=== PATIENT | male | born 1985 | race African-American/Black ===

== ENCOUNTER 2023-08-11 06:21 | Day surgery (SDC) | payer OTHER ==
[2023-08-09 13:25] VITALS: BMI 31.8
[2023-08-11 06:56] VITALS: RESP 16
[2023-08-11] MEDS ORDERED: LIDOCAINE HCL/PF 2% SDV 5ML VIAL ONE (07:06)
[2023-08-11] MEDS ORDERED: MIDAZOLAM HCL 2 MG/2 ML SINGLE DOSE VIAL ONE (07:07)
[2023-08-11] MEDS ORDERED: PROPOFOL 20 ML ONE ×2 (07:07→08:06)
[2023-08-11] MEDS ORDERED: BUPIVACAINE HCL/PF 0.5% (5MG/ML) 10 ML VIAL ONE (07:12)
[2023-08-11] MEDS ORDERED: MORPHINE SULFATE 10 MG/1 ML *VIAL ONE (07:14)
[2023-08-11] MEDS ORDERED: DEXAMETHASONE SOD PHOSPHATE 4 MG/1 ML VIAL ONE (08:07)
[2023-08-11] MEDS ORDERED: ceFAZolin SODIUM 1 GM VIAL ONE (08:07)
[2023-08-11] MEDS ORDERED: ONDANSETRON 4 MG/2 ML VIAL ONE (09:02)
[2023-08-11] MEDS ORDERED: KETOROLAC TROMETHAMINE 30 MG/1 ML VIAL ONE (09:02)
[2023-08-11] MEDS ORDERED: oxyCODONE HCL 5 MG TABLET PO PRN ×2 (09:22)
[2023-08-11] MEDS ORDERED: ONDANSETRON 4 MG/2 ML VIAL IVPUSH PRN (09:22)
[2023-08-11] MEDS ORDERED: PROMETHAZINE HCL 25 MG/1 ML VIAL IVPB PRN (09:22)
[2023-08-11] MEDS ORDERED: ACETAMINOPHEN 1000 MG/100 ML BAG IVPB ONE (09:23)
[2023-08-11] MEDS ORDERED: LACTATED RINGERS SOLUTION 1,000 ML IV SCH (09:30)
[2023-08-11 10:40] VITALS: TEMP 96.9
[2023-08-11 11:12] VITALS: BP 127/82; PULSE 64
== END 2023-08-11 10:55 | disposition home or self-care (01) ==
LOC: FASU 06:21
PROVIDERS: ATTEND Orthopaedic Surgery
PROC: 0SBD4ZZ Excision of Left Knee Joint, Percutaneous Endoscopic Approach (ICD-10-PCS; 2023-08-11)
PROC: 0SND4ZZ Release Left Knee Joint, Percutaneous Endoscopic Approach (ICD-10-PCS; 2023-08-11)
PROC: 0SBD4ZZ Excision of Left Knee Joint, Percutaneous Endoscopic Approach (ICD-10-PCS; principal; 2023-08-11 08:39)
DX: S83.242A Other tear of medial meniscus, current injury, left knee, initial encounter (principal); S83.282A Other tear of lateral meniscus, current injury, left knee, initial encounter; M25.662 Stiffness of left knee, not elsewhere classified; M94.262 Chondromalacia, left knee; M25.862 Other specified joint disorders, left knee; M67.262 Synovial hypertrophy, not elsewhere classified, left lower leg; X58.XXXA Exposure to other specified factors, initial encounter; Y93.9 Activity, unspecified; Y92.9 Unspecified place or not applicable
CPT/HCPCS: 94760

== ENCOUNTER 2023-11-28 13:38 | Emergency (ER) | payer BC, OTHER ==
[2023-11-28] MEDS ORDERED: KETOROLAC TROMETHAMINE 30 MG/1 ML VIAL IM ONE (13:45)
[2023-11-28 14:03] VITALS: BP 131/87; PULSE 71; RESP 18; TEMP 99.1; BMI 32.5
== END 2023-11-28 15:42 | disposition home or self-care (01) ==
LOC: FER 13:38
DX: M25.561 Pain in right knee (principal); M25.562 Pain in left knee; S89.91XA Unspecified injury of right lower leg, initial encounter; R22.41 Localized swelling, mass and lump, right lower limb; W01.0XXA Fall on same level from slipping, tripping and stumbling without subsequent striking against object, initial encounter
CPT/HCPCS: 73560-TC-RT-FY; 73562-TC-LT-FY; 99284-25

== ENCOUNTER 2024-05-17 07:41 | Day surgery (SDC) | payer BC, OTHER ==
[2024-05-15 10:52] VITALS: BMI 31.8
[2024-05-17] MEDS ORDERED: LIDOCAINE HCL/PF 2% SDV 5ML VIAL ONE (08:10)
[2024-05-17] MEDS ORDERED: PROPOFOL 20 ML ONE ×2 (08:10→09:40)
[2024-05-17] MEDS ORDERED: MIDAZOLAM HCL 2 MG/2 ML SINGLE DOSE VIAL ONE (08:11)
[2024-05-17] MEDS ORDERED: MORPHINE SULFATE 10 MG/1 ML *VIAL ONE (09:16)
[2024-05-17] MEDS ORDERED: BUPIVACAINE HCL/PF 0.5% (5MG/ML) 10 ML VIAL ONE (09:16)
[2024-05-17] MEDS ORDERED: ONDANSETRON 4 MG/2 ML VIAL ONE (09:43)
[2024-05-17] MEDS ORDERED: ceFAZolin SODIUM 1 GM VIAL ONE (09:43)
[2024-05-17] MEDS ORDERED: DEXAMETHASONE SOD PHOSPHATE 4 MG/1 ML VIAL ONE (09:43)
[2024-05-17] MEDS ORDERED: KETOROLAC TROMETHAMINE 30 MG/1 ML VIAL ONE (09:43)
[2024-05-17] MEDS: BUPIVACAINE HCL/PF 0.5% (5MG/ML) 10 ML VIAL IJ ONE (10:00)
[2024-05-17] MEDS ORDERED: ONDANSETRON 4 MG/2 ML VIAL IVPUSH PRN (10:45)
[2024-05-17] MEDS ORDERED: LACTATED RINGERS SOLUTION 1,000 ML IV SCH (10:45)
[2024-05-17] MEDS ORDERED: PROMETHAZINE HCL 25 MG/1 ML VIAL IVPB PRN (10:45)
[2024-05-17] MEDS ORDERED: oxyCODONE HCL 5 MG TABLET PO PRN (10:45)
[2024-05-17] MEDS: ACETAMINOPHEN 1000 MG/100 ML BAG IVPB ONE (10:50)
[2024-05-17] MEDS ORDERED: oxyCODONE HCL 5 MG TABLET ONE (11:45)
[2024-05-17] MEDS: oxyCODONE HCL 5 MG TABLET PO PRN (11:45)
[2024-05-17 13:23] VITALS: TEMP 97
[2024-05-17 13:33] VITALS: BP 148/72; PULSE 62; RESP 17
== END 2024-05-17 12:55 | disposition home or self-care (01) ==
LOC: FASU 07:41
PROVIDERS: ATTEND Orthopaedic Surgery
PROC: 0SBD4ZZ Excision of Left Knee Joint, Percutaneous Endoscopic Approach (ICD-10-PCS; 2024-05-17)
PROC: 0QB Lower Bones, Excision (ICD-10-PCS; 2024-05-17)
PROC: 0SQD4ZZ Repair Left Knee Joint, Percutaneous Endoscopic Approach (ICD-10-PCS; 2024-05-17)
PROC: 0SBD4ZZ Excision of Left Knee Joint, Percutaneous Endoscopic Approach (ICD-10-PCS; principal; 2024-05-17 10:00)
DX: S83.242A Other tear of medial meniscus, current injury, left knee, initial encounter (principal); S83.282A Other tear of lateral meniscus, current injury, left knee, initial encounter; M25.662 Stiffness of left knee, not elsewhere classified; M23.8X2 Other internal derangements of left knee; M94.262 Chondromalacia, left knee; M93.262 Osteochondritis dissecans, left knee; M25.862 Other specified joint disorders, left knee; M67.262 Synovial hypertrophy, not elsewhere classified, left lower leg; M67.52 Plica syndrome, left knee; X58.XXXA Exposure to other specified factors, initial encounter; Y93.9 Activity, unspecified; Y92.9 Unspecified place or not applicable
CPT/HCPCS: 88304-TC; 94760; J0131